=== PATIENT | female | born 1955 | race American Indian/Alaskan Native ===

== ENCOUNTER 2016-08-31 09:43 | Outpatient (CLI) | payer BC ==
--- NOTE | 2016-09-01 08:26 | Mammography Report ---
BILATERAL DIGITAL SCREENING MAMMOGRAM with CAD: 08/31/16 09:43:00 CLINICAL: Routine screening. COMPARISON:08/02/15 FINDINGS: The breasts are almost entirely fatty. No mass, architectural distortion or suspicious calcifications. IMPRESSION: No mammographic evidence of malignancy. BI-RADS CATEGORY: 1 - - Negative RECOMMENDATION: Routine mammographic screening in one year. COMMENT: Patient follow-up letters are generated by our [employer] application.
== END 2016-08-31 09:44 | disposition home or self-care (01) ==
LOC: SPVWC 09:43
PROVIDERS: ATTEND Obstetrics & Gynecology
DX: Z12.31 Encounter for screening mammogram for malignant neoplasm of breast (principal)
CPT/HCPCS: 77067; G0202

== ENCOUNTER 2017-09-06 10:58 | Outpatient (CLI) | payer OTHER ==
--- NOTE | 2017-09-06 13:17 | XRay Report ---
LEFT KNEE, 3 views: History: Left knee pain. No comparison. Left knee arthroplasty changes are identified. The hardware appears well applied. No evidence for loosening or infection. No fracture or bone lesion. The joint space is unremarkable. No joint effusion is identified. IMPRESSION: Stable appearance of the left knee arthroplasty. No acute abnormality is detected.
== END 2017-09-06 10:59 | disposition home or self-care (01) ==
LOC: XRAY 10:58
PROVIDERS: ATTEND Internal Medicine
DX: Z02.71 Encounter for disability determination (principal); T84.84XS Pain due to internal orthopedic prosthetic devices, implants and grafts, sequela; Z96.652 Presence of left artificial knee joint

== ENCOUNTER 2017-09-11 09:43 | Outpatient (CLI) | payer BC ==
--- NOTE | 2017-09-12 14:53 | Mammography Report ---
BILATERAL DIGITAL SCREENING MAMMOGRAM with CAD: 09/11/17 09:43:00 CLINICAL: Routine screening. COMPARISON:08/31/16 FINDINGS: The breasts are almost entirely fatty. A left lower inner focal asymmetry requires additional imaging. The asymmetry is near the skin on the MLO view and there is adjacent thickening of the skin.No architectural distortion or suspicious calcifications.The right breast is negative. IMPRESSION: A left focal asymmetry with skin thickening requiring further workup. BI-RADS CATEGORY: 0 -- Additional Imaging Evaluation Required RECOMMENDATION: Recall for left lateralmedial , spot magnification CC and MLO views and left breast ultrasound. ACR BI-RADS MAMMOGRAPHIC CODES: 0 = Needs additional imaging evaluation; 1 = Negative; 2 = Benign; 3 = Probably benign; 4 = Suspicious; 5 = Malignant; 6 = Known biopsy-proven malignancy COMMENT: 1. Dense breast tissue, i.e., adenosis, fibrocystic changes, etc., may obscure an underlying neoplasm. 2. Approximately 10% of cancers are not detected with mammography. 3. A negative mammography report should not delay biopsy if a clinically suspicious mass is present. COMMENT: Patient follow-up letters are generated via our [employer] application.
== END 2017-09-11 09:44 | disposition home or self-care (01) ==
LOC: SPVWC 09:43
PROVIDERS: ATTEND Obstetrics & Gynecology
DX: Z12.31 Encounter for screening mammogram for malignant neoplasm of breast (principal)
CPT/HCPCS: 77067

== ENCOUNTER 2018-10-22 11:16 | Outpatient (CLI) | payer BC, OTHER ==
--- NOTE | 2018-10-28 13:25 | Mammography Report ---
BILATERAL DIGITAL SCREENING MAMMOGRAMS WITH CAD INDICATION: Screening. COMPARISONS: 09/11/2017, 08/31/2016 and annual mammograms going back to 07/10/2013 FINDINGS: Craniocaudal and mediolateral oblique views of both breasts were obtained using 2-D digital acquisition. In addition to standard review, the examination was analyzed for possible abnormalities using a computer-assisted detection device (iCAD). There are scattered areas of fibroglandular density. Bilateral asymmetries are new and require additional imaging. IMPRESSION: Bilateral asymmetries requiring additional imaging. Recommend recall for bilateral spot magnification views and bilateral breast ultrasound if needed. BI-RADS CATEGORY 0: INCOMPLETE - NEED ADDITIONAL IMAGING EVALUATION AND/OR PRIOR MAMMOGRAMS FOR COMP ARISON Information is entered into a reminder system for a target due date for the next mammogram. The resul ts and recommendations were sent to the patient by mail. Signer Name: Seven Akers MD Signed: 10/22/2018 11:57 AM Workstation Name: [id number]
== END 2018-10-22 11:17 | disposition home or self-care (01) ==
LOC: SPVWC 11:16
PROVIDERS: ATTEND Obstetrics & Gynecology
DX: Z12.31 Encounter for screening mammogram for malignant neoplasm of breast (principal)
CPT/HCPCS: 77067

== ENCOUNTER 2018-12-18 10:10 | Outpatient (CLI) | payer BC ==
--- NOTE | 2018-12-19 08:56 | Ultrasound Report ---
BILATERAL DIGITAL DIAGNOSTIC MAMMOGRAM-- 12/18/2018 BILATERAL LIMITED BREAST ULTRASOUND INDICATION: Recall to evaluate bilateral mammographic asymmetries. ABNORMAL MAMMO/ DENSE BREAST TISSU E TECHNIQUE: Digital bilateral mammographic imaging was performed. Magnification views were obtained. COMPARISON: 10/22/2018 FINDINGS: Breast Density: There are scattered areas of fibroglandular density. MAMMOGRAPHIC FINDINGS: Near complete effacement of the right outer asymmetry on spot images. A low-de nsity partially circumscribed asymmetry persists in the inner left breast. ULTRASOUND FINDINGS: Ultrasound of the outer right breast was performed and demonstrated a benign ap pearing nodule at 8:30 o'clock 7 cm from the nipple measuring 4 x 2 x 4 mm. It may be a benign intram ammary lymph node. No suspicious mass or shadowing. Ultrasound of the inner left breast was performed and demonstrated a benign skin lesion at 7:00 7 cm from the nipple. It measures 6 x 4 x 8 mm. There is associated skin thickening. IMPRESSION: Bilateral benign findings. Recommend routine mammographic screening. Follow up recommendation: Routine yearly BI-RADS Category 2: Benign. A "normal" or negative report should not discourage follow up or biopsy of a clinically significant f inding. A written summary of these findings will be mailed to the patient. The patient will be entered into a mammography reporting system which will generate a reminder letter for the patient's next appointmen t at the appropriate interval. According to the [employer], yearly mammograms are recommended starting at age 40 and continuing as long as a woman is in good health. Breast MRI is recommended for women with an falguni roximately 20-25% or greater lifetime risk of breast cancer, including women with a strong family his tory of breast or ovarian cancer and women who have been treated for Hodgkin's disease. Signer Name: Seven Akers MD Signed: 12/19/2018 8:52 AM Workstation Name: [id number]
== END 2018-12-18 10:11 | disposition home or self-care (01) ==
LOC: SPVWC 10:10
PROVIDERS: ATTEND Obstetrics & Gynecology
DX: R92.2 Inconclusive mammogram (principal); N64.89 Other specified disorders of breast
CPT/HCPCS: 77066

== ENCOUNTER 2019-12-04 10:04 | Outpatient (CLI) | payer BC ==
--- NOTE | 2019-12-04 11:28 | Mammography Report ---
DIGITAL SCREENING MAMMOGRAM WITH CAD, 12/04/2019 INDICATION: Routine screening mammography. TECHNIQUE: Digital bilateral 2D mammography was obtained in the craniocaudal and mediolateral obliq ue projections. This examination was interpreted with the benefit of Computer-Aided Detection analysi s. COMPARISON: 12/18/2018, 10/22/2018 FINDINGS: Breast Density: The breasts are almost entirely fatty. There is no evidence of dominant mass, suspicious calcifications or architectural distortion in eithe r breast. Previously described bilateral nodules/nodes are less distinct. IMPRESSION: Follow up recommendation: Routine yearly BI-RADS Category 2: Benign. A "normal" or negative report should not discourage follow up or biopsy of a clinically significant f inding. A written summary of these findings will be mailed to the patient. The patient will be entered into a mammography reporting system which will generate a reminder letter for the patient's next appointmen t at the appropriate interval. The [employer] recommends yearly mammograms starting at age 40 and continuing as l christine as a woman is in good health. Breast MRI is recommended for women with an approximate 20-25% or greater lifetime risk of breast cancer, including women with a strong family history of breast or ova ashu cancer or who have been treated for Hodgkin's disease. Signer Name: Nayan Man MD Signed: 12/04/2019 11:23 AM Workstation Name: [id number]
== END 2019-12-04 10:05 | disposition home or self-care (01) ==
LOC: SPVWC 10:04
PROVIDERS: ATTEND Family Medicine
DX: Z12.31 Encounter for screening mammogram for malignant neoplasm of breast (principal); N64.89 Other specified disorders of breast
CPT/HCPCS: 77067

== ENCOUNTER 2020-12-06 09:00 | Outpatient (CLI) | payer BC ==
--- NOTE | 2020-12-06 10:22 | Mammography Report ---
DIGITAL SCREENING MAMMOGRAM WITH CAD, 12/06/2020 CLINICAL INFORMATION / INDICATION: Routine screening mammography. SCREENING MAMMO TECHNIQUE: Digital bilateral 2D mammography was obtained in the craniocaudal and mediolateral obliqu e projections. This examination was interpreted with the benefit of Computer-Aided Detection analysis . COMPARISON: 07/05/2012 through 12/04/2019. FINDINGS: Breast Density: The breasts are almost entirely fatty. No dominant mass, suspicious calcifications, or architectural distortion in either breast. IMPRESSION: No mammographic evidence of malignancy. Follow up recommendation: Routine yearly BI-RADS Category 1: Negative. A "normal" or negative report should not discourage follow up or biopsy of a clinically significant f inding. A written summary of these findings will be mailed to the patient. The patient will be entered into a mammography reporting system which will generate a reminder letter for the patient's next appointmen t at the appropriate interval. The [employer] recommends yearly mammograms starting at age 40 and continuing as l christine as a woman is in good health. Breast MRI is recommended for women with an approximate 20-25% or greater lifetime risk of breast cancer, including women with a strong family history of breast or ova ashu cancer or who have been treated for Hodgkin's disease. Signer Name: Randell Perez MD Signed: 12/06/2020 10:17 AM Workstation Name: [id number]
== END 2020-12-06 09:01 | disposition home or self-care (01) ==
LOC: SPVWC 09:00
PROVIDERS: ATTEND Family Medicine
DX: Z12.31 Encounter for screening mammogram for malignant neoplasm of breast (principal)
CPT/HCPCS: 77067

== ENCOUNTER 2021-12-07 10:11 | Outpatient (CLI) | payer BC ==
--- NOTE | 2021-12-09 08:44 | Mammography Report ---
DIGITAL SCREENING MAMMOGRAM WITH CAD, 12/07/2021 CLINICAL INFORMATION / INDICATION: Routine screening mammography. TECHNIQUE: Digital bilateral 2D mammography was obtained in the craniocaudal and mediolateral obliqu e projections. This examination was interpreted with the benefit of Computer-Aided Detection analysis . COMPARISON: 12/06/2020, 12/04/2019, 10/22/2018 FINDINGS: Breast Density: The breasts are almost entirely fatty. No dominant mass, suspicious calcifications, or architectural distortion in either breast. There has been no significant interval change. IMPRESSION: No mammographic evidence of malignancy. Follow up recommendation: Routine yearly screening mammogram. BI-RADS Category 1: NEGATIVE A "normal" or negative report should not discourage follow up or biopsy of a clinically significant f inding. A written summary of these findings will be mailed to the patient. The patient will be entered into a mammography reporting system which will generate a reminder letter for the patient's next appointmen t at the appropriate interval. The [employer] recommends yearly mammograms starting at age 40 and continuing as l christine as a woman is in good health. Breast MRI is recommended for women with an approximate 20-25% or greater lifetime risk of breast cancer, including women with a strong family history of breast or ova ashu cancer or who have been treated for Hodgkin's disease. Signer Name: Tonie Zhong MD Signed: 12/09/2021 8:40 AM Workstation Name: [email or web address]
== END 2021-12-07 10:12 | disposition home or self-care (01) ==
LOC: SPVWC 10:11
PROVIDERS: ATTEND Family Medicine
DX: Z12.31 Encounter for screening mammogram for malignant neoplasm of breast (principal)
CPT/HCPCS: 77067